=== PATIENT | female | born 1980 | race Two or more races ===

== ENCOUNTER 2023-06-06 16:44 | Emergency (ER) | payer MEDICAID, OTHER ==
[~2023-06-06] VITALS: Ht 167.6 cm; Wt 75.8 kg
[2023-06-06 17:26] VITALS: BP 130/89; PULSE 95; RESP 18; TEMP 97.7
[2023-06-06 20:02] LABS: COVID19 ANTIGEN SOFIA FIA NEGATIVE (NEGATIVE)
[2023-06-06 20:03] LABS: Rapid Influenza A Negative (Negative); Rapid Influenza B Negative (Negative)
[2023-06-06] MEDS ORDERED: DexAMETHasone SOD PHOS 10MG/1ML VIAL INJ IM ONE (21:00)
[2023-06-06] MEDS ORDERED: KETOROLAC TROMETH 60MG/2ML VIAL IM ONE (21:00)
[2023-06-06] MEDS ORDERED: AMOX875T4 PO (22:16)
[2023-06-06] MEDS ORDERED: PRED20TA2 PO (22:16)
[2023-06-06] MEDS ORDERED: IBUP-1456 PO (22:16)
[2023-06-06 22:37] VITALS: O2SAT 99
== END 2023-06-06 22:53 | disposition home or self-care (01) ==
LOC: ER 16:44
DX: J06.9 Acute upper respiratory infection, unspecified (principal); R09.1 Pleurisy; F12.10 Cannabis abuse, uncomplicated; Z90.49 Acquired absence of other specified parts of digestive tract; Z98.51 Tubal ligation status; Z20.822 Contact with and (suspected) exposure to COVID-19
CPT/HCPCS: 36415; 71250; 87426; 87804; 96372; 99285; J1100; J1885